=== PATIENT | female | born 1990 | race Hispanic/Latino ===

== ENCOUNTER 2023-07-01 06:41 | Emergency (ER) | payer OTHER ==
--- OUTSIDE RECORDS SUMMARY | 2023-07-01 06:45 | XMS REPORT | Continuity of Care Document ---
Author Name Unknown Address [address] [facility]. [address] [place] [address] [facility] Address [address] [facility] [address] [place] [address] Care Team Providers Care Elementary Art Teacher Name Role Phone Anibal Mix Attending Clinician Unavailable Kaleigh Be Attending Clinician [phone] Ariana Swartz Attending Clinician [phone]- [phone] ARIANA NAM Attending Clinician Unavail able Provider, [facility] Attending Clinician Un available Helio Bowser Attending Clinician [phone] HELIO RUBIN Attending Clinician Unavailable Payers Payer Name Policy Type Policy Number Effective Date Expirati on Date Source [employer] C1 [id number] 2019 00:00:00 [facility] Problems Condition Name Condition Details Condition Category Status Onset Date Resolution Date Last Treatment Date Treating Clinician Comments Source Migraine Migraine Disease Active 12 00:00: 00 [facility] [id number] Mixed hyperlipid emia Problem Active [facility] [id number] Migraine with aura and without status migrainosu s, not intractabl e Problem Active [facility] [id number] Vitamin D deficiency Problem Active [facility] No known active problems No known active problems Disease Univers [facility] Allergies, Adverse Reactions, Alerts Allergy Name Allergy Type Status Severity Reaction(s) Onset Date Inactive Date Treating Clinician Comments Source NO KNOWN ALLERGIE S Drug Class Active [facility] Social History Social Habit Start Date Stop Date Quantity Comments Source History of Tobacco Use [facility] Sex Assigned At [facility] Exposure to SARS-CoV-2 (event) Not sure [facility] Tobacco use and exposure 2020-07-21 00:00:00 2020-07-21 00:00:00 Never used [facility] Smoking Status Start Date Stop Date Source Unknown if ever smoked [facility] Never Smoker [facility] Medications Ordered Medication Name Filled Medication Name Start Date Stop Date Current Medication? Ordering Clinician Indication Dosage Frequency Signature (SIG) Comments Components Source ketorolac (TORADOL) injection 30 mg 07-22 01:15: 00 07-22 00:10 :00 No [id number] 30mg [facility] diphenhydrA MINE (BENADRYL) 12.5 mg/5 mL solution 25 mg 07-22 01:15: 00 07-22 00:09 :00 No [id number] 25mg [facility] ondansetron (ZOFRAN-ODT ) disintegrat ing tablet 4 mg 07-22 01:15: 00 07-22 00:11 :00 No [id number] 4mg [facility] Butalbital- Acetaminoph en-Caff (FIORICET) 50-300-40 mg per capsule 07-22 00:02: 32 07-21 00:00 :00 No Take by mouth. [facility] indomethaci n 25 mg capsule 07-18 00:00: 00 Yes TAKE ONE (1) CAPSULE(S) BY MOUTH TWICE A DAY. [facility] NURTEC ODT 75 mg TbDL 07-06 00:00: 00 Yes APPLY ONE (1) TABLET ON THE TONGUE AND ALLOW TO DISSOLVE DAILY NEEDED . MAX ONCE DAILY. [facility] venlafaxine XR 37.5 mg 24 hr capsule 06-16 00:00: 00 Yes 37.5mg Take 37.5 mg by mouth daily. [facility] ketorolac (TORADOL) injection 30 mg 05-17 02:15: 00 05-17 01:13 :00 No 30mg [facility] LORazepam (ATIVAN) 1 mg tablet 05-17 00:19: 44 Yes 1mg Take 1 mg by mouth. [facility] nortriptyli ne 10 mg capsule 05-17 00:19: 44 Yes 10mg Take 10 mg by mouth at bedtime. [facility] Butalbital- Acetaminoph en-Caff (FIORICET) 50-300-40 mg per capsule 05-17 00:18: 24 Yes Take by mouth. [facility] ketorolac 10 mg tablet 05-17 00:17: 43 Yes 10mg Take 10 mg by mouth. PRN [facility] sulfamethox azole-trime thoprim (BACTRIM DS) 800-160 mg per tablet 05-16 00:00: 00 05-24 05:59 :00 No [id number] 1{tbl} Take 1 tablet by mouth 2 (two) times daily for 7 days. [facility] UBRELVY 50 mg Tab 2019-03 2-14 00:00: 00 Yes 50mg 50 mg as needed. [facility] Cipro 500 MG Cipro 500 MG 2019-03 00:00: 00 01-25 00:00 :00 No 1{table t} BID Cipro 500 MG Depo-Fleet Salesperson a 150 MG/ML Depo-Fleet Salesperson a 150 MG/ML 2019-03 00:00: 00 04-12 00:00 :00 No 1{ml} Depo-Prove ra 150 MG/ML Vitamin D3 58301 UNIT Vitamin D3 [id number] UNIT 2019-03 00:00: 00 04-11 00:00 :00 No 1{capsu le} Vitamin D3 10561 UNIT Lorazepam 1 MG Lorazepam 1 MG No 1{table t_at_be dtime_a s_neede d} QD Lorazepam 1 MG Ubrelvy 50 MG Ubrelvy 50 MG No QD Ubrelvy 50 MG Ketorolac Tromethamin e 10 MG Ketorolac Tromethamin e 10 MG No Ketorolac Tromethami ne 10 MG Promethazin e HCl 25 MG Promethazin e HCl 25 MG No 1{table t_as_ne eded} QD Promethazi ne HCl 25 MG Nortriptyli ne HCl 10 MG Nortriptyli ne HCl 10 MG No 1{capsu le} Nortriptyl ine HCl 10 MG Vital Signs Vital Name Observation Time Observation Value Comments S ource Systolic blood pressure 2020-07-21 23:50:00 121 mm[Hg] [facility] Diastolic blood pressure 2020-07-21 23:50:00 88 mm[Hg] [facility] Heart rate 2020-07-21 23:50:00 84 /min [facility] Body temperature 2020-07-21 23:50:00 36.83 Beth [facility] Respiratory rate 2020-07-21 23:50:00 17 /min [facility] Body height 2020-07-21 23:50:00 162.6 cm [facility] Body weight 2020-07-21 23:50:00 61.689 kg [facility] BMI 2020-07-21 23:50:00 23.34 kg/m2 [facility] Oxygen saturation in Arterial blood by Pulse oximetry 2020-07-21 23:50:00 99 /min [facility] Systolic blood pressure 2020-05-17 00:14:00 113 mm[Hg] [facility] Diastolic blood pressure 2020-05-17 00:14:00 86 mm[Hg] [facility] Heart rate 2020-05-17 00:14:00 73 /min [facility] Body temperature 2020-05-17 00:14:00 36.78 Beth [facility] Body height 2020-05-17 00:14:00 162.6 cm [facility] Body weight 2020-05-17 00:14:00 55.339 kg [facility] BMI 2020-05-17 00:14:00 20.94 kg/m2 [facility] blood pressure diastolic 2020-04-13 09:10:00 75 mm[Hg] [facility] height 2020-04-13 09:10:00 64 [in_i] Commo n [facility] weight 2020-04-13 09:10:00 125.0 [lb_av] Co [facility] temperature 2020-04-13 09:10:00 97.5 [degF] Com mon [facility] bmi 2020-04-13 09:10:00 21.45 kg/m2 Comm on [facility] oximetry 2020-04-13 09:10:00 99 % Commo n [facility] respiratory rate 2020-04-13 09:10:00 16 /min [facility] blood pressure systolic 2020-04-13 09:10:00 112 mm[Hg] [facility] height 2020-01-13 08:10:00 64 [in_i] Commo n [facility] weight 2020-01-13 08:10:00 125.8 [lb_av] Co [facility] bmi 2020-01-13 08:10:00 21.59 kg/m2 Comm on [facility] oximetry 2020-01-13 08:10:00 99 % Commo n [facility] respiratory rate 2020-01-13 08:10:00 16 /min [facility] blood pressure systolic 2020-01-13 08:10:00 106 mm[Hg[facility] blood pressure diastolic 2020-01-13 08:10:00 64 mm[Hg] [facility] height 2020-01-06 09:30:00 64 [in_i] Commo n [facility] weight 2020-01-06 09:30:00 125.8 [lb_av] Co mmon [facility] temperature 2020-01-06 09:30:00 97.4 [degF] Com mon [facility] bmi 2020-01-06 09:30:00 21.59 kg/m2 Comm on [facility] oximetry 2020-01-06 09:30:00 99 % Commo n [facility] respiratory rate 2020-01-06 09:30:00 16 /min [facility] blood pressure systolic 2020-01-06 09:30:00 105 mm[Hg] [facility] blood pressure diastolic 2020-01-06 09:30:00 70 mm[Hg] [facility] Procedures Procedure Date / Time Performed Performing Clinicia n Source POCT URINALYSIS 2020-05-16 00:00:00 Radha Bishop [facility] Encounters Start Date/Time End Date/Time Encounter Type Admission Type Attending [facility] Care Facility Care Department Encounter ID Source 2021-04-11 12:26:14 [facility] [id number] [facility] 2021-04-11 12:25:22 [facility] [id number] [facility] 2021-04-11 11:57:56 [facility] [id number] [facility] 2020-07-21 18:42:10 2020-07-21 19:02:10 Urgent Care Kaleigh Brizuela Falon [facility] [id number] [facility] 2020-07-21 19:00:00 2020-07-21 19:00:00 Outpatient ARIANA VERDIN [facility] [id number] [facility] 2020-06-24 16:20:00 2020-06-24 16:20:00 Outpatient [facility] [id number] [facility] 2020-06-03 16:35:00 2020-06-03 16:35:00 Outpatient [facility] [id number] [facility] 2020-05-16 18:10:23 2020-05-16 18:30:23 Urgent Care Provider, [facility] [id number] [facility] 2020-05-16 18:20:00 2020-05-16 18:20:00 Outpatient Ric HELIO RUBIN [facility] [id number] [facility] 2020-04-13 00:00:00 2020-04-13 00:00:00 OFFICE VISIT EST PT LEVEL 3 [facility] [id number] [facility] 2020-01-21 00:00:00 2020-01-21 00:00:00 (WEB) [facility]LMLC [facility] [id number] [facility] 2020-01-13 00:00:00 2020-01-13 00:00:00 OFFICE VISIT ESTAB PT LEVEL 4 [facility]LMLC ST[facility] [id number] [facility] 2020-01-11 00:00:00 2020-01-11 00:00:00 (TEL) STLMLC [facility] [id number] [facility] 2020-01-06 00:00:00 2020-01-06 00:00:00 PREV VISIT NEW AGE 18-39 STLMLC STLMLC [id number] [facility] Results Test Description Test Time Test Comments Results Result Co mments Source [facility]
--- NOTE | 2023-07-01 07:25 | RAD REPORT ---
EXAM DESCRIPTION: RAD - Chest Single View - 07/01/2023 7:17 am CLINICAL HISTORY: CHEST PAIN Chest pain. COMPARISON: No comparisons FINDINGS: Portable technique limits examination quality. The lungs are grossly clear. The heart is normal in size. No displaced fractures. IMPRESSION: No acute intrathoracic process suspected.
[2023-07-01] MEDS ORDERED: MAGNES/ALUMIN/SIMET 30ML UCUP ONE (07:33)
[2023-07-01] MEDS ORDERED: LIDOCAINE VISCOUS 2% 10ML ORAL SOLN ONE (07:33)
[2023-07-01] MEDS ORDERED: FAMOTIDINE 20 MG/2 ML VIAL IV ONE (07:33)
[2023-07-01 07:50] LABS: Absolute Lymphocytes (CBC) 1.6 K/uL (0.7-4.9); Absolute Monocytes 0.5 K/uL (0.1-1.3); Absolute Neutrophil 6.2 K/uL (1.8-8.0); Basophils % 0.3 % (0-1.3); Eosinophils % 0.5 % (0-4.4); Hematocrit 40.8 % (36.0-45.0); Hemoglobin 14.2 g/dL (12.0-15.0); Lymphocytes % 18.8 % (15.3-44.8); MCH 30.2 pg (27.0-35.0); MCHC 34.9 g/dL (32.0-36.0); MCV 86.4 fL (80-100); MPV 8.6 fL (7.6-11.3); Monocytes % 6.5 % (3.3-12.3); Neutrophils % 73.9 % (41.7-73.7); Platelets 238 thou/uL (152-406); RBC Red Blood Cell Count 4.72 M/uL (3.86-4.86); Red Cell Distribution Width 12.1 % (12.1-15.2)
[2023-07-01 08:20] LABS: ALT/SGPT 13 U/L (13-56); AST/SGOT 16 U/L (15-37); Albumin 4.1 g/dL (3.4-5.0); Albumin/Globulin Ratio 1.2 (1.1-1.8); Alkaline Phosphatase 62 U/L (45-117); Anion Gap 8.6 mEq/L (5.0-15.0); BUN Blood Urea Nitrogen 11 mg/dL (7-18); Bicarbonate 28 mEq/L (21-32); Bilirubin Direct 0.2 mg/dL (0-0.2); Bilirubin Total 1.2 mg/dL (0.2-1.0); Globulin 3.5 g/dL (2.3-3.5); Glomerular Filtration Rate 100 ml/min (=/>90); Glucose Level 91 mg/dL (74-106); Lipase 38 U/L (13-75); NT PRO-BNP 103 pg/mL (<125); Potassium 3.6 mEq/L (3.5-5.1); Protein, Total 7.6 g/dL (6.4-8.2); Sodium Level 137 mEq/L (136-145)
[2023-07-01 08:24] LABS: Troponin High Sensitivity < 3.0 pg/mL (<58.9)
[2023-07-01 08:38] LABS: Specific Gravity 1.011 (1.005-1.030); Sqamous Epithelial <5 /HPF (None Seen); Urine Bacteria None Seen /HPF (<20); Urine Bilirubin NEGATIVE (Negative); Urine Blood Negative (Negative); Urine Clarity Turbid (Clear); Urine Color Colorless (Yellow); Urine Culture Reflex Order NOT NEEDED; Urine Glucose NEGATIVE (Negative); Urine Ketones NEGATIVE (Negative); Urine Microscopic Reflex YN ORDER UMIC; Urine Mucus Slight /HPF (None Seen); Urine Nitrite NEGATIVE (Negative); Urine Protein NEGATIVE (Negative); Urine RBC <5 /HPF (None Seen); Urine Urobilinogen Normal (Normal); Urine WBC <5 /HPF (<5); Urine pH 7.5 (5.0-7.0)
--- NOTE | 2023-07-01 09:15 | ER ---
Nurse's Notes [facility] Name: Destinee Gama Age: 32 yrs Sex: Female : 1990 Arrival Date: 07/01/2023 Time: 06:41 Bed 7 Private MD: Diagnosis: Chest pain, unspecified Presentation: 06/30 06:51 Chief complaint: Patient states: Chest pain to the center of her chest last night. Pt cm10 states that the pain radiates to her right shoulder. Pt describes the pain as a burning, pressure. Rates the pain a 9/10 on pain scale. Coronavirus screen: Vaccine status: Patient reports receiving the 2nd dose of the covid vaccine. Client denies travel out of the [place] in the last 14 days. At this time, the client does not indicate any symptoms associated with coronavirus-19. Ebola Screen: Patient denies travel to an Ebola-affected area in the 21 days before illness onset. No symptoms or risks identified at this time. Initial Sepsis Screen: Does the patient meet any 2 criteria? HR > 90 bpm. Does the patient have a suspected source of infection? No. Patient's initial sepsis screen is negative. Risk Assessment: Do you want to hurt yourself or someone else? Patient reports no desire to harm self or others. Onset of symptoms was July 01, 2023. 06:51 Method Of Arrival: Ambulatory cm10 06:51 Acuity: BALJINDER 3 cm10 Triage Assessment: 06:54 General: Appears in no apparent distress. uncomfortable, Behavior is calm, cooperative. cm10 Pain: Complains of pain in chest Pain radiates to Right shoulder Pain currently is 9 out of 10 on a pain scale. Quality of pain is described as burning, pressure, Pain began gradually, Aggravated by repositioning, Also complains of nausea. Neuro: No deficits noted. Level of Consciousness is awake, alert, obeys commands, Oriented to person, place, time, situation. Cardiovascular: Patient's skin is warm and dry. Respiratory: No deficits noted. Airway is patent Respiratory effort is even, unlabored, Respiratory pattern is regular, symmetrical. Historical: - Allergies: 06:54 No Known Allergies; cm10 - PMHx: 06:54 Migraine; PTSD; cm10 - Immunization history:: Adult Immunizations up to date. - Infectious Disease History:: Denies. - Social history:: Smoking status: Patient denies any tobacco usage or history of. - Family history:: not pertinent. - Hospitalizations: : No recent hospitalization is reported. Screenin:46 [facility] ED Fall Risk Assessment (Adult) History of falling in the last 3 months, cm10 including since admission No falls in past 3 months (0 pts) Confusion or Disorientation No (0 pts) Intoxicated or Sedated No (0 pts) Impaired Gait No (0 pts) Mobility Assist Device Used No (0 pt) Altered Elimination No (0 pt) Score/Fall Risk Level 0 - 2 = Low Risk Oriented to surroundings, Maintained a safe environment, Hourly rounding (assess needs \T\ fall precautionary measures) done. Abuse screen: Denies threats or abuse. Denies injuries from another. Nutritional screening: No deficits noted. Tuberculosis screening: No symptoms or risk factors identified. Assessment: 07:43 General: Appears in no apparent distress. comfortable, Behavior is calm, cooperative. cm10 Pain: Complains of pain in chest Pain radiates to RIGHT SHOULDER Pain currently is 9 out of 10 on a pain scale. Quality of pain is described as burning, pressure. Neuro: No deficits noted. Level of Consciousness is awake, alert, obeys commands, Oriented to person, place, time, situation. Cardiovascular: No deficits noted. Patient's skin is warm and dry. Rhythm is regular. Respiratory: No deficits noted. Airway is patent Respiratory effort is even, unlabored, Respiratory pattern is regular, symmetrical. Derm: No deficits noted. Skin is intact, Skin is pink, warm \T\ dry. Musculoskeletal: No signs and/or symptoms reported regarding the musculoskeletal system. Range of motion: intact in all extremities. 09:26 Reassessment: Patient appears in no apparent distress at this time. Patient is alert, kn oriented x 3, equal unlabored respirations, skin warm/dry/pink. Patient denies pain at this time. Patient states feeling better. Patient states symptoms have improved. Pain: Denies pain. Vital Signs: 06:51 BP 121 / 95; Pulse 104; Resp 18 S; Temp 97.7(O); Pulse Ox 100% on R/A; Weight 57.15 kg; cm10 Height 5 ft. 4 in. ; Pain 9/10; 07:47 BP 109 / 76; Pulse 85; Resp 16; Pulse Ox 98% on R/A; cm10 09:00 BP 109 / 82; Pulse 85; Resp 18; Temp 97.7; Pulse Ox 97% ; kn 06:51 Body Mass Index 21.63 (57.15 kg, 162.56 cm) cm10 06:51 Pain Scale: Adult cm10 ED Course: 06:45 Patient arrived in ED. gm2 06:54 Triage completed. cm10 06:55 Inserted saline lock: 20 gauge in right antecubital area, using aseptic technique. oe Blood collected. 06:55 Arm band placed on Patient placed in an exam room, on a stretcher, on traffic monitor specialist, cm10 on pulse oximetry. EKG completed in triage. Results shown to MD. 06:56 EKG done, by ED staff. cm10 06:57 Michael Cortez MD is Attending Physician. rn 07:18 XRAY Chest (1 view) In Process Unspecified. EDMS 07:41 Chen Marshall, RN is Primary Nurse. cm10 07:43 Basic Metabolic Panel Sent. cm10 07:43 CBC with Diff Sent. cm10 07:43 D-Dimer Sent. cm10 07:43 NT PRO-BNP Sent. cm10 07:43 Troponin HS Sent. cm10 07:46 O2 via ROOM AIR. cm10 07:46 Patient has correct armband on for positive identification. Bed in low position. Call cm10 light in reach. Side rails up X2. Provided Education on: CALL LIGHT USE. Client placed on continuous cardiac and pulse oximetry monitoring. NIBP monitoring applied. monitoring engineer on. 08:06 Test, Urine Sent. cm10 08:06 Urinalysis w/ reflexes Sent. cm10 09:03 Yanique Dumas, RN is Primary Nurse. nj1 09:26 IV discontinued, intact, bleeding controlled, No redness/swelling at site. kn 09:26 No provider procedures requiring assistance completed. kn Administered Medications: 07:41 Drug: Famotidine IVP 20 mg IVP once; dilute with 10 mL 0.9% NaCl; give over 2 minutes cm10 Route: IVP; Site: right antecubital; 07:41 Drug: GI Cocktail without - (Maalox PO 30 ml, Lidocaine Mucous Membrane 2 % 15 cm10 ml) PO once Route: PO; Medication: 07:46 VIS not applicable for this client. cm10 Outcome: 09:14 Discharge ordered by MD. solis : Discharged to home césar : Condition: improved : Discharge instructions given to patient, Instructed on discharge instructions, : Patient left the ED. kn Signatures: Dispatcher [employer] EDMS Michael Cortez MD MD rn Espinosa, [place] oe [place], Norma RN RN [email or web address] Chen Marshall RN RN [email or web address] Maria Del Rosario Vera 2 ADALID HOPE RN RN kn
--- NOTE | 2023-07-01 09:15 | EDPHYS ---
Physician Documentation [facility] Name: Destinee Gama Age: 32 yrs Sex: Female : 1990 Arrival Date: 07/01/2023 Time: 06:41 Bed 7 Private MD: ED Physician Michael Cortez HPI: 06/30 07:49 This 32 yrs old Female presents to ER via Ambulatory with complaints of Chest rn Pain. 07:49 The patient or guardian reports chest pain that is located primarily in the substernal rn area. The pain does not radiate. Associated signs and symptoms: Pertinent negatives: abdominal pain, cough, lower extremity swelling, palpitations, shortness of breath, syncope, vomiting. The chest pain is described as burning. Duration: The patient or guardian reports multiple episodes, that are intermittent. Modifying factors: The symptoms are alleviated by nothing. the symptoms are aggravated by Laying down. Severity of pain: At its worst the pain was moderate in the emergency department the pain has improved. The patient has not experienced similar symptoms in the past. Patient reports substernal chest pain that began last night. Denies bad meal. No history of heart or lung problems. No trauma. No family history of early cardiac problems. No recent surgery. No history of DVT or PE. Patient reports worsening pain when laying flat. Took Tums last night did not resolve pain.. Historical: - Allergies: 06:54 No Known Allergies; cm10 - PMHx: 06:54 Migraine; PTSD; cm10 - Immunization history:: Adult Immunizations up to date. - Infectious Disease History:: Denies. - Social history:: Smoking status: Patient denies any tobacco usage or history of. - Family history:: not pertinent. - Hospitalizations: : No recent hospitalization is reported. ROS: 07:49 Constitutional: Negative for fever, chills, and weight loss, Neck: Negative for injury, rn pain, and swelling, Cardiovascular: Positive for chest pain Respiratory: Negative for shortness of breath, cough, wheezing, and pleuritic chest pain, Abdomen/GI: Negative for abdominal pain, nausea, vomiting, diarrhea, and constipation, Back: Negative for injury and pain, MS/Extremity: Negative for injury and deformity, Skin: Negative for injury, rash, and discoloration, Neuro: Negative for headache, weakness, numbness, tingling, and seizure, Exam: 07:05 ECG was reviewed by the Attending Physician. rn 07:49 Constitutional: This is a well developed, well nourished patient who is awake, alert, rn and in no acute distress. Chest/axilla: Normal chest wall appearance and motion. Nontender with no deformity. No lesions are appreciated. Cardiovascular: Regular rate and rhythm. No pulse deficits. Respiratory: No increased work of breathing, no retractions or nasal flaring. Abdomen/GI: Soft, nontender Skin: Warm, dry MS/ Extremity: Pulses equal, no cyanosis. Neurovascular intact. Full, normal range of motion. Equal circumference. Neuro: Awake and alert, GCS 15 Vital Signs: 06:51 BP 121 / 95; Pulse 104; Resp 18 S; Temp 97.7(O); Pulse Ox 100% on R/A; Weight 57.15 kg; cm10 Height 5 ft. 4 in. ; Pain 9/10; 07:47 BP 109 / 76; Pulse 85; Resp 16; Pulse Ox 98% on R/A; cm10 09:00 BP 109 / 82; Pulse 85; Resp 18; Temp 97.7; Pulse Ox 97% ; kn 06:51 Body Mass Index 21.63 (57.15 kg, 162.56 cm) cm10 06:51 Pain Scale: Adult cm10 MDM: 06:57 Patient medically screened. rn 09:13 Differential diagnosis: acute pericarditis, anxiety, coronary artery disease chest wall rn pain, cholecystitis, Cholelithiasis costochondritis, esophagitis, gastritis, gastroesophageal reflux disease (GERD), pancreatitis, peptic ulcer disease, pericarditis, pleurisy, pneumonia, pneumothorax, pulmonary embolus. Data reviewed: vital signs, nurses notes, lab test result(s), EKG, radiologic studies, plain films, and as a result, I will discharge patient. Counseling: I had a detailed discussion with the patient and/or guardian regarding the historical points, exam findings, and any diagnostic results supporting the discharge/admit diagnosis, lab results, radiology results, the need for outpatient follow up, to return to the emergency department if symptoms worsen or persist or if there are any questions or concerns that arise at home. Response to treatment: the patient's symptoms have markedly improved after treatment, and as a result, I will discharge patient. Special discussion: Based on the patient's Hx, exam, and Dx evaluation, there is no indication for emergent surgery or inpatient Tx. It is understood by the patient/guardian that if the Sx's persist or worsen they need to return immediately for re-evaluation. I discussed with the patient/guardian in detail that at this point there is no indication for admission to the hospital. It is understood, however, that if the symptoms persist or worsen the patient needs to return immediately for re-evaluation. Based on the history and exam findings, there is no indication for further emergent testing or inpatient evaluation. I discussed with the patient/guardian the need to see the bushing and broach operator for further evaluation of the symptoms. I discussed with the patient/guardian the need to see the primary care provider for further evaluation of the symptoms. ED course: No acute findings and workup. Chest x-ray images negative per my interpretation. Stable vital signs. Improved after antacid medication. D-dimer negative. Troponin negative. ECG without acute findings. Will discharge home with recommendation for antacid and GI/PCP follow-up. I have personally reviewed all of the results, including but not limited to blood tests and imaging deemed necessary to safely discharge this patient at this time. All results given to and printed out for patient. I personally went over all the results with the patient and answered all questions. Patient will follow-up with PCP and or specialist as discussed. Return precautions given and understood.. 06/30 07:17 Order name: Basic Metabolic Panel; Complete Time: 09:06/30 07:17 Order name: CBC with Diff; Complete Time: :06/30 07:17 Order name: D-Dimer; Complete Time: :06/30 07:17 Order name: NT PRO-BNP; Complete Time: :06/30 07:17 Order name: Troponin HS; Complete Time: :06/30 07:17 Order name: LFT's; Complete Time: :06/30 07:17 Order name: Lipase; Complete Time: 09:06/30 07:51 Order name: Test, Urine; Complete Time: 09:06/30 07:51 Order name: Urinalysis w/ reflexes; Complete Time: 09:06/30 06:59 Order name: XRAY Chest (1 view); Complete Time: 07:41 rn 06/30 06:59 Order name: EKG - Nurse/Tech; Complete Time: 07: rn 06/30 07:17 Order name: Cardiac monitoring; Complete Time: rn 06/30 07:17 Order name: IV Saline Lock; Complete Time: rn 06/30 07:17 Order name: Labs collected and sent; Complete Time: rn 06/30 07:17 Order name: O2 Per Protocol; Complete Time: rn 06/30 07:17 Order name: O2 Sat Monitoring; Complete Time: rn EC: Rate is 96 beats/min. Rhythm is regular. QRS [place] is Normal. IN interval is normal. QRS rn interval is normal. QT interval is normal. No Q waves. T waves are Normal. No ST changes noted. Clinical impression: Normal ECG. Interpreted by me. Reviewed by me. Administered Medications: 07:41 Drug: Famotidine IVP 20 mg IVP once; dilute with 10 mL 0.9% NaCl; give over 2 minutes cm10 Route: IVP; Site: right antecubital; 07:41 Drug: GI Cocktail without - (Maalox PO 30 ml, Lidocaine Mucous Membrane 2 % 15 cm10 ml) PO once Route: PO; Disposition Summary: 07/01/23 09:14 Discharge Ordered Notes: Location: Home rn Problem: new rn Symptoms: have improved rn Condition: Stable rn Diagnosis - Chest pain, unspecified rn Followup: rn - With: Private Physician - When: As needed - Reason: Recheck today's complaints, Re-evaluation by your physician Discharge Instructions: - Discharge Summary Sheet rn - Nonspecific Chest Pain, Adult rn - Pain Without a Known Cause rn Forms: - Medication Reconciliation Form rn - Thank You Letter rn - Antibiotic sport intern - Prescription Opioid Use rn - Patient Portal Instructions rn - Leadership Thank You Letter rn - Work release form db Signatures: Dispatcher [employer] Michael Samson MD MD rn Martinez, Clarissa, RN RN cm10 Corrections: (The following items were deleted from the chart) 07:00 07:00 Chest Single View+RAD.RAD.BRZ ordered. EDMS EDMS 07:18 07:18 BASIC METABOLIC PANEL+C.LAB.BRZ ordered. EDMS EDMS 07:18 07:18 CBC+H.LAB.BRZ ordered. EDMS EDMS 07:18 07:18 D-DIMER+COAG.LAB.BRZ ordered. EDMS EDMS 07:18 07:18 PROBNP+C.LAB.BRZ ordered. EDMS EDMS 07:18 07:18 Troponin High Sensitivity+C.LAB.BRZ ordered. EDMS EDMS 07:18 07:18 HEPATIC FUNCTION+C.LAB.BRZ ordered. EDMS EDMS 07:18 07:18 LIPASE+C.LAB.BRZ ordered. EDMS EDMS 07:18 07:18 Chest Single View+RAD.RAD.BRZ ordered. EDMS EDMS 07:52 07:52 Test, Urine+UC.LAB.BRZ ordered. EDMS EDMS 07:52 07:52 Urinalysis+U.LAB.BRZ ordered. EDMS EDMS 07:52 07:49 Constitutional: This is a well developed, well nourished patient who is awake, rn alert, and in no acute distress. rn
[2023-07-01 13:11] VITALS: BP 109/82; TEMP 97.7; O2SAT 97
== END 2023-07-01 09:28 | disposition home or self-care (01) ==
LOC: ER 06:41
DX: R07.9 Chest pain, unspecified (principal)
CPT/HCPCS: 36415; 71045; 80048; 80076; 81001; 81025; 83690; 83880; 84484; 85025; 85379; 93005; 96374; 99285